=== PATIENT | male | born 1970 | race Caucasian/White ===

== ENCOUNTER 2024-05-06 17:46 | Emergency (ER) | payer SELFPAY ==
[2024-05-06 17:53] VITALS: BP 120/75; PULSE 100; RESP 18; TEMP 97.7; BMI 34.8
== END 2024-05-06 19:31 | disposition home or self-care (01) ==
LOC: JERFT 17:46 → JER 17:46 → JERFT 19:31
DX: F99 Mental disorder, not otherwise specified (principal); Z76.0 Encounter for issue of repeat prescription
CPT/HCPCS: 99281-25